=== PATIENT | female | born 1995 | race Caucasian/White ===

== ENCOUNTER 2017-02-17 03:24 | Emergency (ER) | payer BC ==
[~2017-02-17] VITALS: Ht 162.6 cm; Wt 52.2 kg
[2017-02-17 03:27] VITALS: Ht 162.6 cm; Wt 52.2 kg
[2017-02-17] MEDS ORDERED: ONDANSETRON 4 MG INJ IV STA ×2 (04:19→07:09)
[2017-02-17] MEDS ORDERED: SOD CHLORIDE 0.9% 1,000 ML IV STA (04:19)
[2017-02-17] MEDS ORDERED: morphine 4 MG/ML VIAL IV STA (04:19)
[2017-02-17] MEDS ORDERED: LIDOCAINE/MYLANTA 40 ML BTL PO STA (04:22)
[2017-02-17] MEDS ORDERED: BELLADONNA/PHENOBARBITAL TAB PO STA (04:22)
[2017-02-17] MEDS ORDERED: FAMOTIDINE 20 MG TAB PO STA (04:22)
[2017-02-17 04:56] LABS: BASOPHILS % 0.1 % (0.0-2.0); EOSINOPHILS # 0.1 10^3/ul (0.0-0.5); EOSINOPHILS % 0.6 % (0.0-7.0); HEMOGLOBIN 14.1 g/dl (12.0-16.0); LYMPHOCYTES # 1.3 10^3/ul (0.8-2.9); LYMPHOCYTES % 12.3 % (18.0-55.0); MEAN CORPUSCULAR HEMOGLOBIN 29.9 pg (29.0-33.0); MEAN CORPUSCULAR HGB CONC 34.4 g/dl (32.0-37.0); MEAN CORPUSCULAR VOLUME 86.9 fl (72.0-104.0); MEAN PLATELET VOLUME 10.9 fl (7.4-10.4); MONOCYTE # 0.7 10^3/ul (0.3-0.9); MONOCYTES % 6.3 % (0.0-13.0); NEUTROPHIL # 8.7 10^3/ul (1.6-7.5); NEUTROPHILS % 80.5 % (30.0-74.0); PLATELET COUNT 179 10^3/UL (140-415); RED BLOOD COUNT 4.72 10^6/ul (4.20-5.40); RED CELL DISTRIBUTION WIDTH 12.4 % (11.5-14.5); WHITE BLOOD COUNT 10.8 10^3/ul (4.8-10.8)
[2017-02-17] MEDS ORDERED: IBUPROFEN 600 MG TAB PO ONE (05:00)
[2017-02-17 05:05] LABS: ADD UMIC YES; UR ASCORBIC ACID NEGATIVE (NEGATIVE); UR BACTERIA FEW /HPF (NONE SEEN); UR BILIRUBIN (Dip) NEGATIVE (NEGATIVE); UR BLOOD (Dip) 1+ mg/dL (NEGATIVE); UR CLARITY SLIGHTLY CLOUDY (CLEAR); UR COLOR YELLOW (YELLOW); UR GLUCOSE (Dip) NEGATIVE (NEGATIVE); UR KETONES (Dip) 1+ mg/dL (NEGATIVE); UR LEUKOCYTE ESTERASE (Dip) NEGATIVE Leu/ul (NEGATIVE); UR MUCUS MANY /HPF (NONE SEEN); UR NITRITE (Dip) NEGATIVE (NEGATIVE); UR RBC 1 /HPF (0-5); UR SPECIFIC GRAVITY (Dip) 1.024 (1.003-1.030); UR SQUAMOUS EPITHELIAL CELL FEW /HPF (FEW); UR TOTAL PROTEIN (Dip) NEGATIVE (NEGATIVE); UR UROBILINOGEN (Dip) NEGATIVE (NEGATIVE)
[2017-02-17 05:14] LABS: ALANINE AMINOTRANSFERASE 23 IU/L (13-69); ALBUMIN 4.7 g/dl (3.3-4.9); ALBUMIN/GLOBULIN RATIO 1.14; ALKALINE PHOSPHATASE 94 IU/L (42-121); ANION GAP 19 (8-16); ASPARTATE AMINO TRANSFERASE 22 IU/L (15-46); BILIRUBIN,INDIRECT 0.7 mg/dl (0-1.1); BILIRUBIN,TOTAL 0.7 mg/dl (0.2-1.3); BLOOD UREA NITROGEN 11 mg/dl (7-20); CARBON DIOXIDE 23 mmol/L (21-31); CHLORIDE 105 mmol/L (97-110); CREATININE 0.69 mg/dl (0.44-1.00); GLUCOSE 87 mg/dl (70-220); POTASSIUM 3.7 mmol/L (3.5-5.1); SODIUM 143 mmol/L (135-144); TOTAL PROTEIN 8.8 g/dl (6.1-8.1)
[2017-02-17 05:27] LABS: TROPONIN-I < 0.012 ng/ml (0.00-0.12)
[2017-02-17] MEDS ORDERED: FAMO40TA52 PO (05:48)
[2017-02-17] MEDS ORDERED: CEPH-443 PO (05:48)
[2017-02-17] MEDS ORDERED: NAPR-260 PO (05:48)
[2017-02-17] MEDS ORDERED: MAG355OR14 PO (05:48)
[2017-02-17] MEDS ORDERED: CEFTRIAXONE 1 GM/50 ML (PMX) 50 ML IVPB ONE (06:00)
--- NOTE | 2017-02-17 06:05 | ERD ---
ER Documentation Chief Complaint Chief Complaint abdominal pain/vomiting x 1 day HPI 21-year-old young woman complains of multiple symptoms including left-sided sharp nonexertional nonradiating chest pain, and bilateral lower abdominal pain with a few episodes of nonbloody nonbilious emesis last night. She does have a history of gastritis with regular intermittent epigastric abdominal pain and burning as well. She states recently she has had dysuria and urinary hesitancy 1 day. She denies vaginal discharge, no headache or blurry vision, no complaints of neck pain or stiffness, no recent travel, no recent antibiotic use. ROS All systems reviewed and are negative except as per history of present illness. Medications Home Meds Active Scripts Naproxen* (Naprosyn*) 500 Mg Tablet, 500 MG PO BID Y for PAIN AND/OR INFLAMMATION, #30 TAB Prov:XIN COTA MD 02/17/17 Mag Hydrox/Al Hydrox/Simeth (Maalox Advanced Suspension) 355 Ml Oral.susp, 2 TSP PO TID for PAIN, #24 OZ Prov:XIN COTA MD 02/17/17 Famotidine* (Famotidine*) 40 Mg Tablet, 40 MG PO HS, #30 TAB Prov:XIN COTA MD 02/17/17 Cephalexin* (Keflex*) 500 Mg Capsule, 500 MG PO QID for 7 Days, CAP Prov:XIN COTA MD 02/17/17 Reported Medications [None] No Conflict Check 06/09/09 Allergies Allergies: Coded Allergies: No Known Drug Allergies (Verified Allergy, Mild, 11/04/13) PMhx/Soc Gastritis with scheduled upper endoscopy Medical and Surgical Hx: pt denies Surgical Hx History of Surgery: No Anesthesia Reaction: No Hx Neurological Disorder: No Hx Respiratory Disorders: No Hx Cardiac Disorders: No Hx Psychiatric Problems: No Hx Miscellaneous Medical Probl: Yes (anemia) Hx Alcohol Use: No Hx Substance Use: No Hx Tobacco Use: No Smoking Status: Never smoker FmHx Family History: No diabetes Physical Exam Vitals Vital Signs Date Time Temp Pulse Resp B/P Pulse Ox O2 Delivery O2 Flow Rate FiO2 02/17/17 03:27 100.2 110 20 127/70 100 Physical Exam GENERAL: Well-developed, well-nourished, mild discomfort, febrile HEENT: Dry mucous membranes, pink conjunctiva, no cervical spine tenderness or step-off deformities, no goiter, no jaundice or icterus, extraocular movements intact without pain. No submandibular induration, and no pharyngeal erythema NEURO: Alert and oriented 3, cranial nerves II through XII intact bilaterally, pupils equal round reactive to light, no focal deficits or facial asymmetry, sensation intact distally Strength 5/5 in upper and lower extremities bilaterally CARDIAC: Tachycardic and regular,, no murmurs rubs or gallops LUNGS: Clear bilaterally no wheezing crackles or stridor ABDOMEN: Diffuse mild tenderness throughout the abdomen, no rigidity, no rebound , no psoas sign SKIN: Warm and dry to touch, no abrasions, contusions, or hematomas, no lacerations, no ecchymosis, no target lesions, and without ulcers EXTREMITIES: No clubbing cyanosis or edema, calves are bilaterally symmetrical, no Homans sign, no popliteal cord sign. Distal pulses equal and bilateral PSYCH: Normal affect without agitation or irritability Result Diagram: 02/17/17 0430 02/17/17 0430 Results 24 hrs Laboratory Tests Test 02/17/17 04:30 White Blood Count 10.810^3/ul Red Blood Count 4.7210^6/ul Hemoglobin 14.1g/dl Hematocrit 41.0% Mean Corpuscular Volume 86.9fl Mean Corpuscular Hemoglobin 29.9pg Mean Corpuscular Hemoglobin Concent 34.4g/dl Red Cell Distribution Width 12.4% Platelet Count 51063^3/UL Mean Platelet Volume 10.9fl Neutrophils % 80.5% Lymphocytes % 12.3% Monocytes % 6.3% Eosinophils % 0.6% Basophils % 0.1% Nucleated Red Blood Cells % 0.0/100WBC Neutrophils # 8.710^3/ul Lymphocytes # 1.310^3/ul Monocytes # 0.710^3/ul Eosinophils # 0.110^3/ul Basophils # 0.010^3/ul Nucleated Red Blood Cells # 0.010^3/ul Urine Color YELLOW Urine Clarity SLIGHTLY CLOUDY Urine pH 5.0 Urine Specific Shipman 1.024 Urine Ketones 1+mg/dL Urine Nitrite NEGATIVEmg/dL Urine Bilirubin NEGATIVEmg/dL Urine Urobilinogen NEGATIVEmg/dL Urine Leukocyte Esterase NEGATIVELeu/ul Urine Microscopic RBC 1/HPF Urine Microscopic WBC 4/HPF Urine Squamous Epithelial Cells FEW/HPF Urine Bacteria FEW/HPF Urine Mucus MANY/HPF Urine Hemoglobin 1+mg/dL Urine Glucose NEGATIVEmg/dL Urine Total Protein NEGATIVEmg/dl Sodium Level 143mmol/L Potassium Level 3.7mmol/L Chloride Level 105mmol/L Carbon Dioxide Level 23mmol/L Anion Gap 19 Blood Urea Nitrogen 11mg/dl Creatinine 0.69mg/dl Glucose Level 87mg/dl Calcium Level 10.0mg/dl Total Bilirubin 0.7mg/dl Direct Bilirubin 0.00mg/dl Indirect Bilirubin 0.7mg/dl Aspartate Amino Transf (AST/SGOT) 22IU/L Alanine Aminotransferase (ALT/SGPT) 23IU/L Alkaline Phosphatase 94IU/L Troponin I < 0.012ng/ml Total Protein 8.8g/dl Albumin 4.7g/dl Globulin 4.10g/dl Albumin/Globulin Ratio 1.14 Lipase 83U/L Current Medications Medications (Trade) Dose Ordered Sig/Jerson Route PRN Reason Start Time Stop Time Status Last Admin Dose Admin Sodium Chloride (NS) 1,000 ml @ 1,000 mls/hr Q1H STAT IV 02/17/17 04:19 02/17/17 05:18 DC 02/17/17 04:53 Morphine Sulfate (morphine) 4 mg ONCE STAT IV 02/17/17 04:19 02/17/17 04:41 DC 02/17/17 04:53 Ondansetron HCl (Zofran Inj) 4 mg ONCE STAT IV 02/17/17 04:19 02/17/17 04:41 DC 02/17/17 04:53 Famotidine (Pepcid) 40 mg ONCE STAT PO 02/17/17 04:22 02/17/17 04:41 DC 02/17/17 04:53 Miscellaneous Medication (Gi Cocktail (2)) 40 ml ONCE STAT PO 02/17/17 04:22 02/17/17 04:41 DC 02/17/17 04:53 Belladonna/ Phenobarbital () 2 tab ONCE STAT PO 02/17/17 04:22 02/17/17 04:37 DC 02/17/17 04:53 Ibuprofen 600 mg 600 mg ONCE ONCE PO 02/17/17 05:00 02/17/17 05:01 DC 02/17/17 05:11 Ceftriaxone Sodium (Rocephin) 50 ml @ 100 mls/hr ONCE ONCE IVPB 02/17/17 06:00 02/17/17 06:29 DC 02/17/17 05:53 Procedures/MDM IV line was established patient was placed on playground monitor rhythm strip revealed a sinus rhythm at about 100 bpm with upright P and T waves. Patient was febrile. Urine culture has been ordered results are pending I will follow- up. EKG performed, read by me revealed a sinus tachycardia at 106 bpm, normal axis, narrow QRS complex, no concerning ST elevations or depressions noted. Chest X-ray 1V Interpreted by me: Soft Tissue: No acute abnormalities Bones: No acute abnormalities Mediastinum/Cardiac Silhouette/Lungs: No acute abnormalities Urine analysis was suspicious for early urinary tract infection although leukocytes and nitrites are negative I suspect a UTI so I treated her here with ceftriaxone 1 g IV. Acute appendicitis is also on the differential CT scan of the abdomen and pelvis has been ordered. CBC and electrolytes were normal, liver function tests were normal, troponin was negative Differential diagnoses considered, included but not limited to acute coronary syndrome, pulmonary embolism, aortic dissection, abdominal aortic aneurysm, sepsis, stroke, meningitis, encephalitis, pneumonia, appendicitis, cholecystitis , bowel obstruction, pyelonephritis, nephrolithiasis, cystitis, as well as metabolic, hematologic, and electrolyte abnormalities. As well as abscess, cellulitis, fractures, and dislocations. Patient feels much better at this time, and vital signs are normal, symptoms have improved. I did give strict instructions to return to the ED if symptoms continue or worsen, patient will otherwise follow-up with primary care physician. Patient understood instructions and agreed to plan. Disclaimer: Inadvertent spelling and grammatical errors are likely due to EHR/ dictation software use and do not reflect on the overall quality of patient care. Also, please note that the electronic time recorded on this note does not necessarily reflect the actual time of the patient encounter. Departure Diagnosis: Primary Impression: UTI (urinary tract infection) Urinary tract infection type: acute cystitis Hematuria presence: without hematuria Qualified Code: N30.00 - Acute cystitis without hematuria Additional Impressions: Chest pain Chest pain type: unspecified Qualified Code: R07.9 - Chest pain, unspecified type Gastritis Gastritis type: unspecified gastritis Chronicity: acute Gastritis bleeding : without bleeding Qualified Code: K29.00 - Acute gastritis without hemorrhage, unspecified gastritis type Condition: Good Patient Instructions: Chest Pain, Noncardiac , Gastritis (Adult), Bladder Infection, Female (Adult) XIN COTA MD Feb 17, 2017 06:05
--- NOTE | 2017-02-17 06:45 | RADRPT ---
PROCEDURE: XR Chest. CLINICAL INDICATION: Abdominal pain TECHNIQUE: AP Portable chest. COMPARISON: No pertinent prior examinations were submitted for comparison. FINDINGS: The cardiomediastinal silhouette is normal. The aorta is normal. The lungs are hyperinflated. There are bilateral calcified granulomas. No focal consolidation, pleural effusion or pneumothorax is seen . The osseous structures are intact. IMPRESSION: No radiographic evidence of acute cardiopulmonary disease. Old granulomatous disease. Physician Javy Date Time Electronically viewed and signed by Physician Javy on 02/17/2017 06:45 CS/
[2017-02-17 07:07] VITALS: BP 109/57; PULSE 94
--- NOTE | 2017-02-17 07:43 | RADRPT ---
PROCEDURE: CT Abdomen and Pelvis without contrast. CLINICAL INDICATION: Abdominal pain with nausea and vomiting. TECHNIQUE: CT scan of the abdomen and pelvis without contrast was performed on a multidetector hig h-resolution CT scanner. The patient was scanned without intravenous contrast. Coronal and sagittal reformatted images were obtained from the axial source images. Images were reviewed on a high-resol [employer] PACS workstation. The total exam CTDI equals 17.43 mGy and the total exam DLP equals 915.64 mG y-cm. DICOM images are available. One or more of the following dose reduction techniques were used: Automated exposure control. Adjustment of the mA and/or kV according to patient size. Use of iterative reconstruction technique. COMPARISON: None FINDINGS: CT abdomen: The lung bases are remarkable for a 3.5 mm nodule in the left lower lobe on image 3-8. A calcified g ranuloma is seen in the right lung base laterally on image 3-34. The heart size is normal, without pericardial thickening or effusion. The liver is normal in size and density without focal mass or i ntrahepatic biliary dilatation. The spleen is normal in size and homogeneous in density. The stoma ch is partially collapsed, but is grossly unremarkable. The pancreas as visualized is normal. The gallbladder and biliary tree are unremarkable and there is no evidence for biliary dilatation. The adrenal glands are symmetric and normal. The kidneys are symmetrically unremarkable as well. No re nal calculus or obstructive uropathy or mass lesion is seen. The aorta is of normal caliber. There is no retroperitoneal lymphadenopathy. The shahida hepatis brenda on is clear. The bowel and mesentery, as visualized, are equally unremarkable. CT pelvis: The small bowel loops situated within the pelvis are unremarkable. The appendix is normal. The pelvi c organs are normal. The pelvic sidewalls and inguinal regions are clear. The sigmoid colon and re ctum are unremarkable. No mass, lymphadenopathy, or free fluid is seen. No acute inflammation is s een. No osteolytic or osteoblastic lesion is detected. IMPRESSION: 1. No mass, lymphadenopathy, or focal acute inflammatory process is identified. 2. Normal appendix. RPTAT: EE .Helio Guido MD, MD Date Time Electronically viewed and signed by .Helio Guido MD, on 02/17/2017 07:42 .O/
[2017-02-17] MEDS ORDERED: CAPSAICIN 0.025% 60 GM CR TOP STA (07:53)
[2017-02-17] MEDS ORDERED: ONDA4TAB8 PO (07:58)
[2017-02-17] MEDS ORDERED: METOCLOPRAMIDE 10 MG INJ IV ONE (08:00)
[2017-02-17] MEDS ORDERED: DIPHENHYDRAMINE 50 MG INJ IV ONE (08:00)
--- NOTE | 2017-02-17 08:02 | QN ---
Documentation Comment Observation Note Subjective: This patient was signed out to me by the previous physician. Briefly, this is a 21-year-old female with a history of abdominal pain and gastritis who presented with back, chest and abdominal pain with urinary frequency and dysuria. At time of signout, there is concern of a urinary tract infection given bacteria in the urinalysis. However, a CT of the abdomen and pelvis was pending. The patient still endorses nausea. Family history: As indicated on the initial history and physical of this ER visit Objective: Vital signs reviewed Const: No apparent distress, well-developed, well-nourished Head: Normocephalic, Atraumatic Eyes: Normal Conjunctiva. ENT: Normal External Ears, Nose and Mouth. Neck: No meningismus. Resp: Symmetric chest wall alvarez, no audible wheezes Cardio: Deferred Abd: Non distended, general abdominal discomfort Skin: No petechiae or rashes Back: Deferred Ext: No cyanosis, or edema Neur: Awake and alert, oriented 4. No facial droop. Normal strength and sensation. Psych: Normal mood and affect Assessment: Abdominal pain Plan: The CT of the abdomen was reviewed by the radiologist as follows: CT abd/pelvis The lung bases are remarkable for a 3.5 mm nodule in the left lower lobe on image 3-8. A calcified granuloma is seen in the right lung base laterally on image 3-34. The heart size is normal, without pericardial thickening or effusion. The liver is normal in size and density without focal mass or intrahepatic biliary dilatation. The spleen is normal in size and homogeneous in density. The stomach is partially collapsed, but is grossly unremarkable. The pancreas as visualized is normal. The gallbladder and biliary tree are unremarkable and there is no evidence for biliary dilatation. The adrenal glands are symmetric and normal. The kidneys are symmetrically unremarkable as well. No renal calculus or obstructive uropathy or mass lesion is seen. The aorta is of normal caliber. There is no retroperitoneal lymphadenopathy. The shahida hepatis region is clear. The bowel and mesentery, as visualized, are equally unremarkable. The small bowel loops situated within the pelvis are unremarkable. The appendix is normal. The pelvic organs are normal. The pelvic sidewalls and inguinal regions are clear. The sigmoid colon and rectum are unremarkable. No mass, lymphadenopathy, or free fluid is seen. No acute inflammation is seen. No osteolytic or osteoblastic lesion is detected. IMPRESSION: No mass, lymphadenopathy, or focal acute inflammatory process is identified. Normal appendix. Electronically viewed and signed by .Helio Guido MD, MD on 02/17/2017 07:42 The patient was febrile in the emergency department. I did evaluate for the flu. Her flu testing was negative. There is possibility of a another unspecified viral illness given her total constitution of symptoms. However, with the negative CT scan, I have less suspicion for an emergent intra- abdominal etiology. The patient did have a subsequent episode of nausea. She was given Reglan IV, Benadryl IV and capsaicin topically. This did improve her symptoms. At this time, the patient is stable for discharge. She needs to follow-up with her primary care physician in 2-3 days for reevaluation. She will be given precautions with which to return to the emergency department. FRANCISCA HENDERSON MD Feb 17, 2017 08:02
== END 2017-02-17 09:39 | disposition home or self-care (01) ==
LOC: E/R 03:24
DX: N30.00 Acute cystitis without hematuria (principal); K29.00 Acute gastritis without bleeding
CPT/HCPCS: 36415; 71010; 74176; 80053; 81001; 83690; 84484; 85025; 87086; 87400; 93005; 96374; 96375; 96376; J0696; J1200; J2270; J2405; J2765; J7030; Z7502; Z7610